=== PATIENT | female | born 2000 | race Caucasian/White ===

== ENCOUNTER 2021-10-03 11:50 | Emergency (ER) | payer OTHER ==
[~2021-10-03] VITALS: Ht 175.3 cm; Wt 106.6 kg
[2021-10-03 11:56] VITALS: BP 146/86
[2021-10-03] MEDS ORDERED: ZOFRAN IV PRN (12:00)
[2021-10-03] MEDS ORDERED: NS 1000ML 1,000 ML IV ONE (12:00)
[2021-10-03] MEDS ORDERED: THORAZINE IM STA (12:02)
--- NOTE | 2021-10-03 12:03 | NUR ---
ARRIVAL PATIENT ARRIVED TO ED8 [address] [facility], C/O NAUSEA AND VOMITING FOR THE PAST 5 DAYS, HAD A BABY 6 WEEKS AGO AND HAS NOT FELT WELL SINCE, CALLED EMS TO BRING TO THE ED, EMS INITIATED A 20G TO THE LEFT HAND AND GAVE ZOFRAN 4MG IV AND NORMAL SALINE WIDE OPEN, PATIENT ASSISTED TO ED RHONEA PATH, VITAL SIGNS OBTAINED AND DOCTOR TATI NOTIFIED OF PATIENT'S ARRIVAL.
[2021-10-03] MEDS ORDERED: THORAZINE ONE ×2 (12:06→12:07)
[2021-10-03] MEDS ORDERED: TORADOL ONE (12:06)
--- NOTE | 2021-10-03 12:07 | ER.PDOC ---
General Chief Complaint: Nausea,Vomiting,Diarrhea Stated Complaint: N/V Time seen by MD: 12:00 Source: patient Exam Limitations: no limitations History of Present Illness Initial Comments 29-year-old female comes here with many complaints which include back pain, posterior rib cage bilateral pain, nausea vomiting, abdominal pain, burning upon urination. The patient apparently diagnosed with UTI in the marital several days ago but did not feel a prescription for somebody that appeared visiting a friend. No fever here. No fever. She indicated the pain is severe. She did not take any medication for this at home. Allergies: Coded Allergies: No Known Allergies (Unverified , 10/03/21) Home Meds No Active Prescriptions or Reported Meds Vital Signs First Vital Signs Date Time Temp Pulse Resp B/P (MAP) Pulse Ox O2 Delivery O2 Flow Rate FiO2 10/03/21 11:56 98.0 80 16 146/86 (106) 98 Room Air* 0 21 Last Vital Signs Date Time Temp Pulse Resp B/P (MAP) Pulse Ox O2 Delivery O2 Flow Rate FiO2 10/03/21 13:20 98.0 63 16 141/63 (89) 98 Room Air* 0 21 Past Medical History Medical History: no pertinent history, other Surgical History: no surgical history LMP (females 10-50): =>1yr Family History Significant Family History: no pertinent family hx Social History Smoking: non-smoker Alcohol Use: none Drug Use: none Reviewed Nursing Reviewed: Vital Signs, Abn. Noted Constitutional: denies no symptoms reported, denies see HPI, denies chills, denies diaphoresis, denies fever, denies malaise, denies weakness, denies other EENTM: denies no symptoms reported, denies see HPI, denies eye pain, denies blurred vision, denies tearing, denies double vision, denies ear pain, denies ear discharge, denies nose pain, denies nose congestion, denies throat pain, denies throat swelling, denies mouth pain, denies mouth swelling, denies other Respiratory: denies no symptoms reported, denies see HPI, denies cough, denies orthopnea, denies shortness of breath, denies SOB with exertion, denies SOB at rest, denies stridor, denies wheezing, denies other Cardiovascular: denies no symptoms reported, denies see HPI, denies chest pain, denies edema, denies irregular heart rate, denies lightheadedness, denies palpitations, denies syncope, denies other Gastrointestinal: denies no symptoms reported, denies see HPI, denies abdomen distended; abdominal pain; denies blood streaked bowels, denies constipated, denies diarrhea, denies difficulty swallowing; nausea; denies poor appetite, denies poor fluid intake, denies rectal bleeding; vomiting; denies other Genitourinary: denies no symptoms reported, denies see HPI, denies burning; dysuria; denies discharge, denies frequency, denies flank pain, denies hematuria, denies incontinence, denies pain, denies urgency, denies other Musculoskeletal: denies no symptoms reported, denies see HPI; back pain; denies gout, denies joint pain, denies joint swelling, denies muscle pain, denies muscle stiffness, denies neck pain, denies other Skin: denies no symptoms reported, denies see HPI, denies change in color, denies change in hair/nails, denies dryness, denies lesions, denies lumps, denies rash, denies other Psychiatric/Neurological: denies no symptoms reported, denies see HPI, denies anxiety, denies depressed, denies emotional problems, denies headache, denies numbness, denies paresthesia, denies pre-existing deficit, denies seizure, denies tingling, denies tremors, denies weakness, denies other Endocrine: denies no symptoms reported, denies see HPI, denies excessive sweating, denies flushing, denies intolerance to cold, denies intolerance to heat, denies increased hunger, denies increased thrist, denies increased urine, denies unexplained weight gain, denies unexplaned weight loss, denies other Hematologic/Lymphatic: denies no symptoms reported, denies see HPI, denies anemia, denies blood clots, denies easy bleeding, denies easy bruising, denies swollen glands, denies other All Other Systems: Reviewed and Negative Physical Exam General Appearance: Anxious, Mild Distress HEENT: PERRL/EOMI, Normal ENT Inspection Neck: Non-Tender, Full Range of Motion, Supple Respiratory: chest non-tender, lungs clear, normal breath sounds, no respiratory distress Cardiovascular: Normal Peripheral Pulses, Regular Rate, Rhythm, No Edema, No Gallop, No JVD, No Murmur Gastrointestinal: Normal Bowel Sounds, No Organomegaly, No Pulsatile Mass, Non Tender Back: Normal Inspection, No CVA Tenderness, No Vertebral Tenderness Extremities: Normal Range of Motion, Non-Tender, Normal Inspection 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 The patient has no neuro deficit. She is moving all extremities. No indication of any urinary retention. Results/Orders Results/Orders Orders - KRISSY DUFFY MD Cbc With Auto Diff (10/03/21 11:56) Basic Metabolic Panel (10/03/21 11:56) Hcg, Quantitative (10/03/21 11:56) Urinalysis (10/03/21 11:56) Ondansetron Hcl/Pf (Zofran) (10/03/21 12:00) 0.9 % Sodium Chloride (Ns 1000ml) (10/03/21 12:00) Chlorpromazine Hcl (Thorazine) (10/03/21 12:02) Ketorolac Tromethamine (Toradol) (10/03/21 12:30) Chlorpromazine Hcl (Thorazine) (10/03/21 12:06) Ketorolac Tromethamine (Toradol) (10/03/21 12:06) Chlorpromazine Hcl (Thorazine) (10/03/21 12:07) Drug Scrn Med W Confirmation (10/03/21 12:07) Urine Culture (10/03/21 12:37) Vital Signs Date Time Temp Pulse Resp B/P (MAP) Pulse Ox O2 Delivery O2 Flow Rate FiO2 10/03/21 13:20 98.0 63 16 141/63 (89) 98 Room Air* 0 21 10/03/21 11:56 98.0 80 16 10/03/21 11:56 98.0 80 16 98 10/03/21 11:56 98.0 80 16 146/86 (106) 98 Room Air* 0 21 Administered Medications Medications (Trade) Dose Ordered Sig/Nargis Route PRN Reason Start Time Stop Time Status Last Admin Dose Admin Chlorpromazine HCl (Thorazine) 50 mg STAT STAT IM 10/03/21 12:02 10/03/21 12:03 DC 10/03/21 12:15 50 MG Ketorolac Tromethamine (Toradol) 30 mg Q6H ONCE IV 10/03/21 12:30 10/03/21 12:31 DC 10/03/21 12:15 30 MG Laboratory Tests Test 10/03/21 12:06 10/03/21 12:27 10/03/21 12:37 White Blood Count 10.3 10^3/uL (4.5-12.5) Red Blood Count 4.26 10^6/uL (4.00-5.20) Hemoglobin 13.2 g/dL (12.4-14.8) Hematocrit 40.8 % (36.0-46.0) Mean Corpuscular Volume 95.8 fL (78-100) Mean Corpuscular Hemoglobin 31.0 pg (26-34) Mean Corpuscular Hemoglobin Concent 32.4 g/dL (33-36.5) L Red Cell Distribution Width 13.1 % (11.5-14.5) Platelet Count 225 10^3/uL (150-400) Mean Platelet Volume 10.2 fL (7.8-11.0) Neutrophils (%) (Auto) 89.2 % (41.0-85.0) H Lymphocytes (%) (Auto) 4.9 % (24.0-44.0) *L Monocytes (%) (Auto) 5.4 % (5.0-12.0) Neutrophils # (Auto) 9.2 10^3/uL (1.8-8.0) H Lymphocytes # (Auto) 0.50 10^3/uL1 (1.2-5.2) L Monocytes # (Auto) 0.6 10^3/uL (0.0-0.4) H Absolute Immature Granulocyte (auto 0.01 10^3 u/L (0-2) Absolute Eosinophils (auto) 0.0 10^3/uL (0.0-0.2) Immature Granulocytes % 0.10 % (0.00-0.50) Eosinophils % 0.1 % (0.0-5.0) Basophils % 0.3 % (0.0-0.2) H Basophils # 0.0 10^3/uL (0.0-0.1) Sodium Level 140 mmol/L (132-145) Potassium Level 3.7 mmol/L (3.6-5.2) Chloride Level 105.0 mmol/L (96-109) Carbon Dioxide Level 24.1 mmol/L (20.0-32) Glucose Level 115 mg/dL (70-110) H Blood Urea Nitrogen 10 mg/dL (7-18) Creatinine 0.79 mg/dL (0.59-1.40) Calcium Level 8.8 mg/dL (8.4-10.5) Anion Gap 14.6 Estimated GFR () 112.3 (>/=60) Est GFR (CKD-EPI)(Non-Afr [place]ican) 92.8 (>/=60) BUN/Creatinine Ratio 12.0 Human Chorionic Gonadotropin, Quant < 5 mIU/mL Differential Total Cells Counted 100 #CELLS Segmented Neutrophils 87 % (28-78) H Band Neutrophils 1 % (2-6) L Lymphocytes 6 % (25-36) L Monocytes 5 % (3-9) Differential Comment NORMAL Atypical Lymphocytes 1 % Platelet Estimate ADEQUATE Platelet Morphology NORMAL Urine Collection Type UNKNOWN Urine Color ORANGE Urine Appearance CLOUDY Urine Bilirubin (NEGATIVE) Urine Ketones (NEGATIVE) Urine Specific [place] (1.005-1.030) Urine pH (4.5-8.0) Urine Protein (NEGATIVE) Urine Urobilinogen E.U./dL (0.2) Urine Nitrate (NEGATIVE) Urine Leukocyte Esterase (NEGATIVE) Urine Glucose (Auto)(UA) (NEGATIVE) Urine Blood (NEGATIVE) Urine RBC 5-10 RBC/HPF (NONE SEEN) H Urine WBC 5-10 WBC/HPF (0-2) H Urine Squamous Epithelial Cells MODERATE (<=FEW) Urine Bacteria MANY (NONE SEEN) H Urine Comment Urine Opiates Screen NEGATIVE (c/o300ng/mL) Urine Methadone Screen NEGATIVE (c/o300ng/mL) Urine Barbiturates Screen NEGATIVE (c/o200ng/mL) Urine Phencyclidine Screen NEGATIVE (c/o 25ng/mL) Ur Amphetamine/Methamphetamine NEGATIVE (hi9091hp/mL) Urine MDMA Screen (Ecstasy) NEGATIVE (c/o300ng/mL) Urine Benzodiazepines Screen NEGATIVE (c/o200ng/mL) Urine Cocaine Metabolite Screen NEGATIVE (c/o300ng/mL) Ur Tetrahydrocannabinol (THC) Scrn PRESUMPTIVE POSITIVE (c/o Progress Progress Patient unclear if she got any antibiotics at the location or not. The urine looks as possible contaminant but not really clear. We will give 1 shot of Rocephin and then discharge home ER DEPART Departure Time of Disposition: 13:25 Disposition: 01 HOME / SELF CARE / HOMELESS Impression: Primary Impression: Abdominal pain Additional Impressions: UTI (urinary tract infection) Flank pain Condition: Improved Additional Instructions: Drink lots of liquids over the next few days Fill your prescription Follow-up with your doctor soon as possible Follow-up results of the urine culture in the next 2-3 business days Return to the hospital if any new symptoms develop Scripts No Active Prescriptions or Reported Meds Duration or Time Spent with Pa: 20 min Problem Qualifiers KRISSY DUFFY MD October 03, 2021 12:07
[2021-10-03 12:10] LABS: BASOPHIL % 0.3 % (0.0-0.2); EOSINOPHIL % 0.1 % (0.0-5.0); LYMPHOCYTES % 4.9 % (24.0-44.0); MONOCYTES # 0.6 10^3/uL (0.0-0.4); MONOCYTES % 5.4 % (5.0-12.0); NEUTROPHIL # 9.2 10^3/uL (1.8-8.0); NEUTROPHILS % 89.2 % (41.0-85.0); PLATELET COUNT 225 10^3/uL (150-400); RED CELL DISTRIBUTION WIDTH 13.1 % (11.5-14.5)
[2021-10-03 12:30] LABS: CARBON DIOXIDE 24.1 mmol/L (20.0-32); GLUCOSE 115 mg/dL (70-110)
[2021-10-03] MEDS ORDERED: TORADOL IV ONE (12:30)
[2021-10-03 12:46] LABS: BAND NEUTROPHILS 1 % (2-6); DIFFERENTIAL COMMENT NORMAL; LYMPHOCYTE 6 % (25-36); MONOCYTE 5 % (3-9); SEGMENTED NEUTROPHILS 87 % (28-78)
[2021-10-03 13:20] VITALS: BP 141/63
[2021-10-03] MEDS ORDERED: NS 100ML 100 ML IV ONE (13:30)
[2021-10-03] MEDS ORDERED: ROCEPHIN 1,000 MG in NS 100ML 100 ML IV ONE (13:30)
[2021-10-03] MEDS ORDERED: ROCEPHIN ONE (13:30)
[2021-10-03 13:38] VITALS: BP 156/81
== END 2021-10-03 13:47 | disposition home or self-care (01) ==
LOC: ER 11:50
DX: R07.81 Pleurodynia (principal); N39.0 Urinary tract infection, site not specified; R10.9 Unspecified abdominal pain; Z87.440 Personal history of urinary (tract) infections
CPT/HCPCS: 36415; 80048; 80307; 81001; 84702; 85025; 87077; 87086; 87186; 96372; 96374; 96375; 99284; J0696 ×2; J1885; J3230 ×2; 80349